=== PATIENT | male | born 1980 | race Caucasian/White ===

== ENCOUNTER 2016-06-22 23:33 | Emergency (ER) | payer SELFPAY ==
[~2016-06-22] VITALS: Ht 172.7 cm; Wt 163.3 kg
[~2016-06-22 23:33] MED LIST: FURO-69 PO; HYDR-971 PO; HYDR15SO4 PO; NAPR500T8 PO; ORPH100T PO; POTA20TA82 PO
[2016-06-23 01:12] LABS: BASO # 0.1 x10^3/uL (0.0-0.2); BASO % 1 % (0-3); EOS % 2 % (0-3); HEMATOCRIT 41.6 % (39.0-53.0); HEMOGLOBIN 13.6 g/dL (13.0-17.5); LYMPH # 3.9 x10^3/uL (1.0-4.8); LYMPH % 33 % (24-48); MEAN CORPUSCULAR HEMOGLOBIN 28 pg (25-35); MEAN CORPUSCULAR HGB CONC 33 g/dL (31-37); MEAN CORPUSCULAR VOLUME 86 fL (79-100); MONO % 7 % (0-9); NEUT % 57 % (31-73); PLATELET COUNT 322 x10^3/uL (140-400); RED BLOOD COUNT 4.85 x10^6/uL (4.30-5.70); RED CELL DISTRIBUTION WIDTH 13.9 % (11.5-14.5); WHITE BLOOD COUNT 11.8 x10^3/uL (4.0-11.0)
[2016-06-23 01:14] LABS: BILIRUBIN,URINE NEGATIVE (NEG); GLUCOSE,URINE NEGATIVE (NEG); NITRITE,URINE NEGATIVE (NEG); PROTEIN,URINE NEGATIVE (NEG-TRACE); UROBILINOGEN,URINE 0.2 mg/dL (0.2 mg/dL)
[2016-06-23 01:21] LABS: BARBITURATES NEG (NEG); BENZODIAZEPINES NEG (NEG); CANNABINOIDS NEG (NEG); COCAINE NEG (NEG); METHADONE NEG (NEG); OPIATES NEG (NEG); PHENCYCLIDINE NEG (NEG)
[2016-06-23 01:22] LABS: CALCIUM 8.6 mg/dL (8.5-10.1); CREATININE 0.8 mg/dL (0.7-1.3); POTASSIUM 3.7 mmol/L (3.5-5.1)
[2016-06-23 01:28] LABS: ALBUMIN 3.4 g/dL (3.4-5.0); ALBUMIN/GLOBULIN RATIO 0.7 (1.0-1.7); MAGNESIUM 1.7 mg/dL (1.8-2.4); TOTAL BILIRUBIN 0.2 mg/dL (0.2-1.0)
[2016-06-23 01:30] LABS: ETHANOL, URINE NEG (NEG)
[2016-06-23 01:31] LABS: BACTERIA,URINE 0 /HPF (0-FEW); RBC,URINE OCC /HPF (0-2); SQUAMOUS EPITHELIAL CELL,UR OCC /LPF; WBC,URINE OCC /HPF (0-4)
[2016-06-23 02:30] VITALS: BP 115/59
[2016-06-23] MEDS ORDERED: FURO-68 PO (02:42)
[2016-06-23] MEDS ORDERED: POTA20TA4 PO (02:42)
--- NOTE | 2016-06-23 02:43 | PHYS DOC ---
Past Medical History Past Medical History: Hypertension, Other Additional Past Medical Histor: SLEEP APNEA,obesity Past Surgical History: Tonsillectomy, Other Additional Past Surgical Histo: FINGER, EYE Alcohol Use: None Drug Use: None Adult General Chief Complaint Chief Complaint: WEAKNESS/GENERALIZED HPI HPI Patient is a 35 year old male who presents with complaint of generalized body aches and fatigue. Patient states his symptoms have been present for the past 2 weeks. Patient states that he is not currently following with a primary physician. Patient notes that he has been having "water retention" which she has had in the past. Patient states that he was treated with Lasix temporarily with improvement. Patient denies any chest pain or shortness of breath currently. Patient states that he has been urinating more frequently despite normal fluid intake. Patient denies any associated dysuria. Patient had noted symptoms of near syncope and blurry vision during triage, however patient states that he is not experiencing any symptoms at this time. Review of Systems Review of Systems Constitutional: Denies fever or chills [] Eyes: Denies change in visual acuity, redness, or eye pain [] HENT: Denies nasal congestion or sore throat [] Respiratory: Denies cough or shortness of breath [] Cardiovascular: Edema, denies chest pain [] GI: Denies abdominal pain, nausea, vomiting, bloody stools or diarrhea [] : Increased urinary frequency, denies dysuria [] Musculoskeletal: Muscle aches [] Integument: Denies rash or skin lesions [] Neurologic: Denies headache, focal weakness or sensory changes [] Endocrine: Denies polyuria or polydipsia [] Allergies Allergies Allergies Coded Allergies Type Severity Reaction Last Updated Verified No Known Drug Allergies 12/28/14 No Physical Exam Physical Exam Constitutional: Alert, afebrile, morbidly obese, no acute distress. [] HENT: Normocephalic, atraumatic, bilateral external ears normal, oropharynx moist, no oral exudates, nose normal. [] Eyes: PERRLA, EOMI, conjunctiva normal, no discharge. [] Neck: Normal range of motion, no tenderness, supple, no stridor. [] Cardiovascular:Heart rate regular rhythm, no murmur [] Lungs & Thorax: Bilateral breath sounds clear to auscultation [] Abdomen: Bowel sounds normal, soft, no tenderness, no masses, no pulsatile masses. [] Skin: Warm, dry, no erythema, no rash. [] Back: No tenderness, no CVA tenderness. [] Extremities: No tenderness, no cyanosis, no clubbing, ROM intact, 1+ edema in the bilateral lower extremities. [] Neurologic: Alert and oriented X 3, normal motor function, normal sensory function, no focal deficits noted. [] Current Patient Data Vital Signs Vital Signs Date Time Temp Pulse Resp B/P Pulse Ox O2 Delivery O2 Flow Rate FiO2 06/23/16 00:50 80 16 133/58 96 Room Air 06/22/16 23:50 98.3 98.3 Lab Values Laboratory Tests Test 06/23/16 00:01 06/23/16 01:00 06/23/16 01:09 Urine Collection Type Unknown Urine Color Yellow Urine Clarity Clear Urine pH 7.0 Urine Specific [place] 1.025 Urine Protein Negativemg/dL (NEG-TRACE) Urine Glucose (UA) Negativemg/dL (NEG) Urine Ketones (Stick) Negativemg/dL (NEG) Urine Blood Negative (NEG) Urine Nitrite Negative (NEG) Urine Bilirubin Negative (NEG) Urine Urobilinogen Dipstick 0.2mg/dL (0.2 mg/dL) Urine Leukocyte Esterase Negative (NEG) Urine RBC Occ/HPF (0-2) Urine WBC Occ/HPF (0-4) Urine Squamous Epithelial Cells Occ/LPF Urine Bacteria 0/HPF (0-FEW) Urine Mucus Slight/LPF Urine Opiates Screen Neg (NEG) Urine Methadone Screen Neg (NEG) Urine Barbiturates Neg (NEG) Urine Phencyclidine Screen Neg (NEG) Urine Amphetamine/Methamphetamine Neg (NEG) Urine Benzodiazepines Screen Neg (NEG) Urine Cocaine Screen Neg (NEG) Urine Cannabinoids Screen Neg (NEG) Urine Ethyl Alcohol Neg (NEG) White Blood Count 11.8x10^3/uL (4.0-11.0) H Red Blood Count 4.85x10^6/uL (4.30-5.70) Hemoglobin 13.6g/dL (13.0-17.5) Hematocrit 41.6% (39.0-53.0) Mean Corpuscular Volume 86fL (79-100) Mean Corpuscular Hemoglobin 28pg (25-35) Mean Corpuscular Hemoglobin Concent 33g/dL (31-37) Red Cell Distribution Width 13.9% (11.5-14.5) Platelet Count 322x10^3/uL (140-400) Neutrophils (%) (Auto) 57% (31-73) Lymphocytes (%) (Auto) 33% (24-48) Monocytes (%) (Auto) 7% (0-9) Eosinophils (%) (Auto) 2% (0-3) Basophils (%) (Auto) 1% (0-3) Neutrophils # (Auto) 6.7x10^3uL (1.8-7.7) Lymphocytes # (Auto) 3.9x10^3/uL (1.0-4.8) Monocytes # (Auto) 0.9x10^3/uL (0.0-1.1) Eosinophils # (Auto) 0.2x10^3/uL (0.0-0.7) Basophils # (Auto) 0.1x10^3/uL (0.0-0.2) Sodium Level 142mmol/L (136-145) Potassium Level 3.7mmol/L (3.5-5.1) Chloride Level 102mmol/L (98-107) Carbon Dioxide Level 30mmol/L (21-32) Anion Gap 10 (6-14) Blood Urea Nitrogen 18mg/dL (8-26) Creatinine 0.8mg/dL (0.7-1.3) Estimated GFR (Cockcroft-Gault) 110.0 BUN/Creatinine Ratio 23 (6-20) H Glucose Level 129mg/dL (70-99) H Calcium Level 8.6mg/dL (8.5-10.1) Magnesium Level 1.7mg/dL (1.8-2.4) L Total Bilirubin 0.2mg/dL (0.2-1.0) Aspartate Amino Transferase (AST) 46U/L (15-37) H Alanine Aminotransferase (ALT) 86U/L (16-63) H Alkaline Phosphatase 84U/L (46-116) Total Protein 8.0g/dL (6.4-8.2) Albumin 3.4g/dL (3.4-5.0) Albumin/Globulin Ratio 0.7 (1.0-1.7) L Glucose (Fingerstick) 114mg/dL (70-99) H Laboratory Tests 06/23/16 01:00 Laboratory Tests 06/23/16 01:00 EKG EKG Interpreted by me: Heart rate 75, sinus rhythm, normal intervals, normal axis, no acute ST/T-wave abnormalities present [] Radiology/Procedures Radiology/Procedures Not performed [] Course & Med Decision Making Course & Med Decision Making Pertinent Labs and Imaging studies reviewed. (See chart for details) Patient's blood work showed a mild decrease in magnesium levels and borderline elevated blood sugar. Patient's lab work otherwise unremarkable. The patient appears otherwise stable and in no acute distress. As the patient has had problems with peripheral edema in the past that responded well with Lasix, we will go ahead and initiate Lasix therapy for outpatient treatment. Patient was also prescribed potassium to take daily with his Lasix. Recommended that the patient follow-up with primary care in 1-2 weeks for reevaluation and recommended return to emergency department for any worsening symptoms. Patient voiced understanding and in agreement with treatment plan. Dragon Disclaimer Dragon Disclaimer This electronic medical record was generated, in whole or in part, using a voice recognition dictation system. Departure Departure Impression: Primary Impression: Peripheral edema Additional Impressions: Myalgia Fatigue Disposition: HOME, SELF-CARE Condition: STABLE Referrals: NO PCP (PCP) Patient Instructions: Fatigue, Peripheral Edema Additional Instructions: Follow-up with a primary care physician in the next 1-2 weeks for reevaluation. You may take magnesium maleate as a supplement daily. Take as directed on the bottle. Return to the emergency department for any worsening symptoms. Scripts Potassium Chloride (Klor-Con M20)20 Meq Tab.er.prt1 Tab PO DAILY #15 TAB Ref 0 Prov:SARIAH RAMSAY MD 06/23/16 Furosemide (Lasix)40 Mg Tablet1 Tab PO DAILY #15 TAB Ref 1 Prov:SARIAH RAMSAY MD 06/23/16 Problem Qualifiers Additional Impressions: Fatigue Fatigue type: unspecified Qualified Code: R53.83 - Other fatigue SARIAH RAMSAY MD Jun 23, 2016 02:43
--- NOTE | 2016-06-23 09:54 | EKG ---
[facility] [address] [place] [address] Test Date: 2016-06-23 Test Time: 01:11:32 Pat Name: ALEKSANDR HALL Department: Room: Gender: M Work [employer]: : 1980 Requested By: SARIAH RAMSAY Order Number: [id number] Reading MD: Measurements Intervals [place] Rate: 75 P: 31 IL: 164 QRS: 42 QRSD: 88 T: 25 QT: 378 QTc: 425 Interpretive Statements SINUS RHYTHM RI6.01 No previous ECG available for comparison
== END 2016-06-23 02:54 | disposition home or self-care (01) ==
LOC: ER 23:33
DX: R53.83 Other fatigue (principal); M79.1 Myalgia; R60.0 Localized edema; I10 Essential (primary) hypertension; G47.30 Sleep apnea, unspecified; E66.9 Obesity, unspecified; Z68.43 Body mass index [BMI] 50.0-59.9, adult
CPT/HCPCS: 36415; 80053; 80305; 81001; 82947; 83735; 85027; 93005; G0481; 99285-25

== ENCOUNTER 2017-07-06 19:15 | Inpatient (IN) | payer SELFPAY ==
[2017-07-06] MEDS: IPRATRPIUM/ALBUTEROL 0.5/2.5MG 3 ML NEBU. NEB (20:01)
[2017-07-06] MEDS: ACETAMINOPHEN 500 MG TABLET PO (20:09)
[2017-07-06 20:16] LABS: INFLUENZA A PATIENT NEGATIVE (NEGATIVE); INFLUENZA B PATIENT NEGATIVE (NEGATIVE); OBC FLU VALID
[2017-07-06 21:42] LABS: ADD MAN DIFF? NO
[2017-07-06 21:46] LABS: BASO # 0.1 x10^3/uL (0.0-0.2); BASO % 1 % (0-3); EOS % 0 % (0-3); HEMATOCRIT 40.6 % (39.0-53.0); HEMOGLOBIN 14.2 g/dL (13.0-17.5); LYMPH # 1.9 x10^3/uL (1.0-4.8); LYMPH % 17 % (24-48); MEAN CORPUSCULAR HEMOGLOBIN 29 pg (25-35); MEAN CORPUSCULAR HGB CONC 35 g/dL (31-37); MEAN CORPUSCULAR VOLUME 84 fL (79-100); MONO # 1.2 x10^3/uL (0.0-1.1); MONO % 11 % (0-9); NEUT # 8.3 x10^3uL (1.8-7.7); NEUT % 72 % (31-73); PLATELET COUNT 302 x10^3/uL (140-400); RED BLOOD COUNT 4.86 x10^6/uL (4.30-5.70); RED CELL DISTRIBUTION WIDTH 14.8 % (11.5-14.5); WHITE BLOOD COUNT 11.6 x10^3/uL (4.0-11.0)
[2017-07-06 21:59] LABS: ANION GAP 10 (6-14); BLOOD UREA NITROGEN 11 mg/dL (8-26); BUN/CREATININE RATIO 12 (6-20); CALCIUM 7.9 mg/dL (8.5-10.1); CARBON DIOXIDE 28 mmol/L (21-32); CHLORIDE 102 mmol/L (98-107); CREATININE 0.9 mg/dL (0.7-1.3); GFR 95.5; GLUCOSE 171 mg/dL (70-99); POTASSIUM 3.7 mmol/L (3.5-5.1); SODIUM 140 mmol/L (136-145)
[2017-07-06 22:04] LABS: ALBUMIN/GLOBULIN RATIO 0.6 (1.0-1.7); ALK PHOS 76 U/L (46-116); ALT (SGPT) 56 U/L (16-63); AST (SGOT) 31 U/L (15-37); TOTAL BILIRUBIN 0.4 mg/dL (0.2-1.0); TOTAL PROTEIN 8.1 g/dL (6.4-8.2)
[2017-07-06 22:07] LABS: LACTIC ACID 1.7 mmol/L (0.4-2.0)
[2017-07-06] MEDS: fentaNYL PF VIAL 100 MCG/2 ML VIAL IV (23:00)
[2017-07-06] MEDS: IV NORMAL SALINE 1000ML BAG 1,000 ML IV (23:07)
[2017-07-06] MEDS: IBUPROFEN 800 MG TABLET. PO (23:08)
[2017-07-06] MEDS ORDERED: ACETAMINOPHEN 325 MG TABLET. PO (23:15)
[2017-07-07 01:05] LABS: BILIRUBIN,URINE NEGATIVE (NEG); CLARITY,URINE CLOUDY; COLOR,URINE YELLOW; GLUCOSE,URINE NEGATIVE (NEG); NITRITE,URINE NEGATIVE (NEG); PROTEIN,URINE 30 mg/dL (NEG-TRACE)
[2017-07-07 01:17] LABS: BACTERIA,URINE 0 /HPF (0-FEW); SQUAMOUS EPITHELIAL CELL,UR OCC /LPF; WBC,URINE OCC /HPF (0-4)
[2017-07-07 03:35] LABS: ADD MAN DIFF? NO
[2017-07-07 03:59] LABS: BASO % 0 % (0-3); EOS % 0 % (0-3); HEMATOCRIT 39.1 % (39.0-53.0); HEMOGLOBIN 13.4 g/dL (13.0-17.5); LYMPH % 26 % (24-48); MEAN CORPUSCULAR HEMOGLOBIN 29 pg (25-35); MEAN CORPUSCULAR HGB CONC 34 g/dL (31-37); MEAN CORPUSCULAR VOLUME 84 fL (79-100); MONO # 1.3 x10^3/uL (0.0-1.1); MONO % 11 % (0-9); NEUT # 7.4 x10^3uL (1.8-7.7); NEUT % 63 % (31-73); PLATELET COUNT 270 x10^3/uL (140-400); RED BLOOD COUNT 4.63 x10^6/uL (4.30-5.70); RED CELL DISTRIBUTION WIDTH 14.6 % (11.5-14.5); WHITE BLOOD COUNT 11.7 x10^3/uL (4.0-11.0)
[2017-07-07 04:21] LABS: ALBUMIN 2.6 g/dL (3.4-5.0); ALBUMIN/GLOBULIN RATIO 0.5 (1.0-1.7); ALK PHOS 73 U/L (46-116); ALT (SGPT) 48 U/L (16-63); ANION GAP 6 (6-14); AST (SGOT) 25 U/L (15-37); BLOOD UREA NITROGEN 12 mg/dL (8-26); BUN/CREATININE RATIO 15 (6-20); CALCIUM 8.3 mg/dL (8.5-10.1); CARBON DIOXIDE 31 mmol/L (21-32); CHLORIDE 104 mmol/L (98-107); CREATININE 0.8 mg/dL (0.7-1.3); GFR 109.4; GLUCOSE 163 mg/dL (70-99); POTASSIUM 3.6 mmol/L (3.5-5.1); SODIUM 141 mmol/L (136-145); TOTAL BILIRUBIN 0.3 mg/dL (0.2-1.0); TOTAL PROTEIN 7.4 g/dL (6.4-8.2)
[2017-07-07] MEDS: AZITHROMYCIN 250 MG TABLET. PO (16:27)
== END 2017-07-07 16:37 | disposition home or self-care (01) | DRG 194 ==
LOC: 4 NORTH 23:35 → ER 19:15
DX: J18.9 Pneumonia, unspecified organism (principal); Z68.43 Body mass index [BMI] 50.0-59.9, adult; E66.01 Morbid (severe) obesity due to excess calories; I10 Essential (primary) hypertension; G47.33 Obstructive sleep apnea (adult) (pediatric); Z90.89 Acquired absence of other organs; Z82.49 Family history of ischemic heart disease and other diseases of the circulatory system
CPT/HCPCS: 36415; 71046; 80053; 81001; 83605; 85025; 87040; 87804; 87804-59; 94640; 96365; 96368; 99285; 99285-25; J0690; J1956; J7030; J7620; Q0144

== ENCOUNTER 2019-05-03 23:38 | Emergency (ER) | payer SELFPAY ==
[~2019-05-03] VITALS: Ht 172.7 cm; Wt 170.6 kg
[~2019-05-03 23:38] MED LIST changes: +FURO-68 PO; +HYDR-3164 PO; -HYDR-971 PO; -HYDR15SO4 PO; +HYDR15SO6 PO; +POTA20TA4 PO; -POTA20TA82 PO
--- NOTE | 2019-05-04 01:04 | PHYS DOC ---
Past Medical History Past Medical History: Hypertension, Other Additional Past Medical Histor: SLEEP APNEA,obesity Past Surgical History: Tonsillectomy, Other Additional Past Surgical Histo: FINGER, EYE Smoking Status: Never Smoker Alcohol Use: None Drug Use: None Adult General Chief Complaint Chief Complaint: MULTIPLE COMPLAINTS [facility] HPI 38-year-old male presents to the emergency Department complaints of left eye swelling 1 day, bilateral lower extremity swelling 1 month. Patient is on HCTZ as well as Lasix. He denies any injury to his lower extremities, denies any injury to his eye. Patient denies any chest pain, shortness breath, nausea, vomi ting. He denies any visual change, just states the eyes painful at times. He denies blurry vision on exam. Nothing makes his pain worse, nothing makes his pain better on exam. Patient has what appears to be chronic venous stasis changes. No evidence of cellulitis appreciated on exam. Review of Systems Review of Systems Constitutional: Denies fever or chills [] Respiratory: Denies cough or shortness of breath [] Cardiovascular: No additional information not addressed in HPI [] GI: Denies abdominal pain, nausea, vomiting, bloody stools or diarrhea [] : Denies dysuria or hematuria [] Musculoskeletal: lower ext edema Integument: left eye with swelling appreciated Neurologic: Denies headache, focal weakness or sensory changes [] All other systems were reviewed and found to be within normal limits, except as documented in this note. Allergies Allergies Allergies Coded Allergies Type Severity Reaction Last Updated Verified No Known Drug Allergies 12/28/14 No Physical Exam Physical Exam Constitutional: Well developed, well nourished, no acute distress, non-toxic appearance. [] HENT: Normocephalic, atraumatic, bilateral external ears normal, oropharynx moist, no oral exudates, nose normal. [] Eyes: PERRLA, EOMI, conjunctival irritation, no obvious injury or foreign body, + discharge [] Cardiovascular:Heart rate regular rhythm, no murmur [] Lungs & Thorax: Bilateral breath sounds clear to auscultation [] Abdomen: Bowel sounds normal, soft, no tenderness, no masses, no pulsatile masses. [] Skin: Warm, dry, no erythema, no rash. [] Back: No tenderness, no CVA tenderness. [] Extremities: No tenderness, lower ext edema. [] Neurologic: Alert and oriented X 3, no focal deficits noted. [] Psychologic: Affect normal, judgement normal, mood normal. [] Current Patient Data Vital Signs Vital Signs Date Time Temp Pulse Resp B/P (MAP) Pulse Ox O2 Delivery O2 Flow Rate FiO2 05/04/19 00:49 98.2 79 20 134/50 (78) 97 Room Air 98.2 Lab Values Laboratory Tests Test 05/04/19 01:00 White Blood Count 10.1 x10^3/uL (4.0-11.0) Red Blood Count 4.73 x10^6/uL (4.30-5.70) Hemoglobin 13.8 g/dL (13.0-17.5) Hematocrit 40.1 % (39.0-53.0) Mean Corpuscular Volume 85 fL (79-100) Mean Corpuscular Hemoglobin 29 pg (25-35) Mean Corpuscular Hemoglobin Concent 34 g/dL (31-37) Red Cell Distribution Width 14.4 % (11.5-14.5) Platelet Count 304 x10^3/uL (140-400) Neutrophils (%) (Auto) 52 % (31-73) Lymphocytes (%) (Auto) 35 % (24-48) Monocytes (%) (Auto) 9 % (0-9) Eosinophils (%) (Auto) 2 % (0-3) Basophils (%) (Auto) 1 % (0-3) Neutrophils # (Auto) 5.3 x10^3/uL (1.8-7.7) Lymphocytes # (Auto) 3.6 x10^3/uL (1.0-4.8) Monocytes # (Auto) 0.9 x10^3/uL (0.0-1.1) Eosinophils # (Auto) 0.2 x10^3/uL (0.0-0.7) Basophils # (Auto) 0.1 x10^3/uL (0.0-0.2) D-Dimer ([place]) < 0.27 ug/mlFEU Sodium Level 142 mmol/L (136-145) Potassium Level 3.6 mmol/L (3.5-5.1) Chloride Level 105 mmol/L (98-107) Carbon Dioxide Level 31 mmol/L (21-32) Anion Gap 6 (6-14) Blood Urea Nitrogen 18 mg/dL (8-26) Creatinine 0.8 mg/dL (0.7-1.3) Estimated GFR (Cockcroft-Gault) 108.2 BUN/Creatinine Ratio 23 (6-20) H Glucose Level 106 mg/dL (70-99) H Calcium Level 8.5 mg/dL (8.5-10.1) Total Bilirubin 0.2 mg/dL (0.2-1.0) Aspartate Amino Transferase (AST) 45 U/L (15-37) H Alanine Aminotransferase (ALT) 75 U/L (16-63) H Alkaline Phosphatase 78 U/L (46-116) Total Protein 7.3 g/dL (6.4-8.2) Albumin 3.3 g/dL (3.4-5.0) L Albumin/Globulin Ratio 0.8 (1.0-1.7) L Laboratory Tests 05/04/19 01:00 Laboratory Tests 05/04/19 01:00 EKG EKG [] Radiology/Procedures Radiology/Procedures [] Course & Med Decision Making Course & Med Decision Making Pertinent Labs and Imaging studies reviewed. (See chart for details) []38-year-old male presents to the emergency Department complaints of left eye swelling 1 day, bilateral lower extremity swelling 1 month. Patient is on HCTZ as well as Lasix. He denies any injury to his lower extremities, denies any injury to his eye. Patient denies any chest pain, shortness breath, nausea, vomiting. He denies any visual change, just states the eyes painful at times. He denies blurry vision on exam. Nothing makes his pain worse, nothing makes his pain better on exam. Patient has what appears to be chronic venous stasis changes. No evidence of cellulitis appreciated on exam. Labs reviewed and negative DDimer without elevation Abx provided for left eye conjunctivitis Recommend continuing diuretics as prescribed Follow up with PCP as outpatient Dragon Disclaimer Dragon Disclaimer This electronic medical record was generated, in whole or in part, using a voice recognition dictation system. Departure Departure Impression: Primary Impression: Peripheral edema Additional Impression: Conjunctivitis Disposition: HOME, SELF-CARE Condition: STABLE Referrals: NO PCP (PCP) Patient Instructions: Conjunctivitis (Viral and Bacterial), Peripheral Edema Additional Instructions: Recommend continuing medications as prescribed Rx provided for eye infection Labs reviewed without concern for DVT in lower ext. Tylenol/motrin as needed for pain Return to ER with worsening symptoms, fever, altered mental status Scripts Sulfacetamide Sodium (BLEPH-10) 5 Ml Drops 2 DROP OS QID, #5 ML 0 Refills Prov: ARIES DUNN MD 05/04/19 Problem Qualifiers Additional Impression: Conjunctivitis Conjunctivitis type: acute Acute conjunctivitis type: viral Laterality: left Qualified Codes: B30.9 - Viral conjunctivitis, unspecified ARIES DUNN MD May 04, 2019 01:04
[2019-05-04 01:16] LABS: BASO # 0.1 x10^3/uL (0.0-0.2); BASO % 1 % (0-3); EOS # 0.2 x10^3/uL (0.0-0.7); EOS % 2 % (0-3); HEMATOCRIT 40.1 % (39.0-53.0); HEMOGLOBIN 13.8 g/dL (13.0-17.5); LYMPH # 3.6 x10^3/uL (1.0-4.8); LYMPH % 35 % (24-48); MEAN CORPUSCULAR HEMOGLOBIN 29 pg (25-35); MEAN CORPUSCULAR HGB CONC 34 g/dL (31-37); MEAN CORPUSCULAR VOLUME 85 fL (79-100); MONO # 0.9 x10^3/uL (0.0-1.1); MONO % 9 % (0-9); NEUT # 5.3 x10^3/uL (1.8-7.7); NEUT % 52 % (31-73); PLATELET COUNT 304 x10^3/uL (140-400); RED BLOOD COUNT 4.73 x10^6/uL (4.30-5.70); RED CELL DISTRIBUTION WIDTH 14.4 % (11.5-14.5); WHITE BLOOD COUNT 10.1 x10^3/uL (4.0-11.0)
[2019-05-04 01:21] LABS: CALCIUM 8.5 mg/dL (8.5-10.1); CREATININE 0.8 mg/dL (0.7-1.3); GFR 108.2; POTASSIUM 3.6 mmol/L (3.5-5.1)
[2019-05-04 01:31] LABS: ALBUMIN 3.3 g/dL (3.4-5.0); ALBUMIN/GLOBULIN RATIO 0.8 (1.0-1.7); TOTAL BILIRUBIN 0.2 mg/dL (0.2-1.0); TOTAL PROTEIN 7.3 g/dL (6.4-8.2)
[2019-05-04] MEDS ORDERED: SULF5DRO OS (01:58)
[2019-05-04 02:00] VITALS: BP 107/47
== END 2019-05-04 02:22 | disposition home or self-care (01) ==
LOC: ER 23:38
DX: B30.9 Viral conjunctivitis, unspecified (principal); R60.0 Localized edema; I10 Essential (primary) hypertension; E66.9 Obesity, unspecified; Z68.43 Body mass index [BMI] 50.0-59.9, adult; Z90.89 Acquired absence of other organs; Z98.890 Other specified postprocedural states
CPT/HCPCS: 36415; 80053; 85025; 85379; 99283